=== PATIENT | male | born 1995 | race Caucasian/White ===

== ENCOUNTER 2018-07-07 23:29 | Emergency (ER) | payer MEDICAID ==
[~2018-07-07] VITALS: Ht 170.2 cm; Wt 97.5 kg
[2018-07-07 23:39] VITALS: BP 122/73
--- NOTE | 2018-07-07 23:43 | NUR ---
PT AMBULATED TO BED 4 WITH VSS. Addendum: 07/07/18 at 2344 by MED PT AMBULATED TO BED 6 WITH VSS.
--- NOTE | 2018-07-07 23:59 | NUR ---
PT C/O OF RASH. MULTIPLE <1/2CM RED SPOTS ON ABD, BILAT ARMS AND BILAT GROIN WITH ITCHING. NO DRAINAGE. STATES GETTING WORSE OVER THE PAST WEEK, TRIED BENADRYL WITH NO RELIEF. DENIES DIFFICULTY SWALLOWING OR BREATHING. 100% ON RA.
[2018-07-08 01:02] VITALS: BP 124/75
--- NOTE | 2018-07-08 01:02 | NUR ---
Patient discharged with v/s stable. Written and verbal after care instructions given and explained. Patient alert, oriented and verbalized understanding of instructions. Ambulatory with steady gait. All questions addressed prior to discharge. ID band removed. Patient advised to follow up with PMD. Rx of CALADRYL given. Patient educated on indication of medication including possible reaction and side effects. Opportunity to ask questions provided and answered.
== END 2018-07-08 00:40 | disposition home or self-care (01) ==
LOC: MED 23:29
DX: L42 Pityriasis rosea (principal)
CPT/HCPCS: 99282